=== PATIENT | female | born 1995 | race Caucasian/White ===

== ENCOUNTER → 2016-07-16 05:32 | Day surgery (SDC) | payer MEDICARE, MEDICAID ==
[2016-05-01 05:21] VITALS: BMI 32.2
[2016-07-14 12:15] LABS: BASOPHILS 0.2 % (0.0-2.0); EOSINOPHILS 1.2 % (0-7); HEMATOCRIT 34.7 % (36.0-48.0); HEMOGLOBIN 10.8 g/dL (12-16); IMMATURE GRANULOCYTES 0.2 % (0-5); LYMPHOCYTES 40.4 % (15-50); MCH 24.9 pg (26.0-34.0); MCHC 31.1 g/dL (31.0-37.0); MCV 80.1 fL (80.0-100.0); MEAN PLATELET VOLUME 10.1 fL (7.4-10.4); MONOCYTES 8.5 % (2-11); NEUTROPHILS 49.5 % (40-80); RBC 4.33 10x6/uL (4.00-5.40)
[2016-07-14 12:16] LABS: PLATELET COUNT 237 10x3/uL (130-400)
[~2016-07-16 05:32] MED LIST: HYDROCODONE-APA1 TAB PO; IBUPROFEN600 MG PO; PRENATABS RX TA1 TAB PO
== END | disposition home or self-care (01) ==
LOC: D.OPS 05:32 → D.PAN 10:00 → D.OPS 12:30
PROVIDERS: Obstetrics & Gynecology
DX: Z30.2 Encounter for sterilization (principal); Z01.810 Encounter for preprocedural cardiovascular examination; Z01.811 Encounter for preprocedural respiratory examination; Z01.812 Encounter for preprocedural laboratory examination; Z53.9 Procedure and treatment not carried out, unspecified reason